=== PATIENT | female | born 1950 | race Caucasian/White ===

== ENCOUNTER 2021-04-21 13:22 | Day surgery (SDC) | payer OTHER ==
[~2021-04-21] VITALS: Ht 160 cm; Wt 75.2 kg
[~2021-04-21 13:22] MED LIST: FAMO20; Flonase 0.05% N16 GM; LORA10ER; PRINIVIL5 M1; ZOCOR20 MG
[2021-04-21] MEDS ORDERED: MASOPHEN325 M1 (13:56)
== END 2021-04-21 15:46 | disposition home or self-care (01) ==
LOC: ORSCSDS 13:22
PROVIDERS: Internal Medicine Gastroenterology
PROC: 0DBL8ZX Excision of Transverse Colon, Via Natural or Artificial Opening Endoscopic, Diagnostic (ICD-10-PCS; principal; 2021-04-21 14:45)
DX: Z12.11 Encounter for screening for malignant neoplasm of colon (principal); K63.5 Polyp of colon; K57.30 Diverticulosis of large intestine without perforation or abscess without bleeding; K64.8 Other hemorrhoids
CPT/HCPCS: 88305; J2704; J7120

== ENCOUNTER → 2022-01-26 | Outpatient (CLI) | payer OTHER ==
[~2022-01-26] MED LIST changes: +MASOPHEN325 M1
== END | disposition home or self-care (01) ==
LOC: LAB 16:49 → LAB SHORT 16:49
DX: R30.0 Dysuria (principal)
CPT/HCPCS: 87086

== ENCOUNTER → 2022-02-25 | Outpatient (CLI) | payer OTHER | END | disposition home or self-care (01) | LOC: LAB SHORT 11:42 → LAB 11:42 | DX: R30.0 Dysuria (principal) | CPT/HCPCS: 87086 ==

== ENCOUNTER → 2022-03-15 | Outpatient (CLI) | payer OTHER | END | disposition home or self-care (01) | LOC: LAB SHORT 07:51 → PLD 07:51 → LAB 07:51 | DX: N95.0 Postmenopausal bleeding (principal); R93.89 Abnormal findings on diagnostic imaging of other specified body structures | CPT/HCPCS: 88305 ==

== ENCOUNTER → 2022-06-11 | Outpatient (CLI) | payer OTHER ==
[2022-06-14 11:42] LABS: Adenovirus F 40/41 Not Detected (NOT DETECT); Astrovirus Not Detected (NOT DETECT); Campylobacter Sp Not Detected (NOT DETECT); Cryptosporidium Not Detected (NOT DETECT); Cyclospora Cayetanensis Not Detected (NOT DETECT); E. Coli O157 Not Detected (NOT DETECT); Entamoeba Histolytica Not Detected (NOT DETECT); Enteroaggregative E. coli-EAEC Not Detected (NOT DETECT); Enteropathogenic E. coli-EPEC Detected (NOT DETECT); Enterotoxigenic E. coli-ETEC Not Detected (NOT DETECT); Giardia Lamblia Not Detected (NOT DETECT); Norovirus GI/GII Not Detected (NOT DETECT); Plesiomonas Shigelloides Not Detected (NOT DETECT); Rotavirus A Not Detected (NOT DETECT); Salmonella Sp Not Detected (NOT DETECT); Sapovirus Not Detected (NOT DETECT); Shiga Toxin-prod E. coli-STEC Not Detected (NOT DETECT); Shigella/Enteroin E. coli-EIEC Not Detected (NOT DETECT); Vibrio Cholerae Not Detected (NOT DETECT); Vibrio Sp Not Detected (NOT DETECT); Yersinia Enterocolitica Not Detected (NOT DETECT)
== END | disposition home or self-care (01) ==
LOC: LAB SHORT 12:15 → LAB 12:15
PROVIDERS: Family Medicine
DX: K52.9 Noninfective gastroenteritis and colitis, unspecified (principal)
CPT/HCPCS: 87507

== ENCOUNTER 2022-09-27 11:33 | Day surgery (SDC) | payer OTHER ==
[~2022-09-27] VITALS: Ht 160 cm; Wt 68.9 kg
--- NOTE | 2022-09-27 14:58 | NUR ---
09/27/22 1453 NI VALLE PT HAS RX FOR PERCOCET AND IBUPROFEN. PT REQUESTS AN RX FOR TRAMADOL INSTEAD OF PERCOCET. DR. KLEIN CHANGED RX TO TRAMADOL AND REQUESTED THAT RX FOR PERCOCET AND IBUPROFEN TO BE DESTROYED. STATES THAT SHE CAN TAKE OTC IBUPROFEN.
== END 2022-09-27 23:59 | disposition home or self-care (01) ==
LOC: ORSCSDS 11:33
PROVIDERS: Obstetrics & Gynecology
PROC: 0UB74ZZ Excision of Bilateral Fallopian Tubes, Percutaneous Endoscopic Approach (ICD-10-PCS; principal; 2022-09-27 13:00)
PROC: 0UDB7ZX Extraction of Endometrium, Via Natural or Artificial Opening, Diagnostic (ICD-10-PCS; principal; 2022-09-27 13:00)
PROC: 0UB24ZZ Excision of Bilateral Ovaries, Percutaneous Endoscopic Approach (ICD-10-PCS; principal; 2022-09-27 13:00)
PROC: 0UJD8ZZ Inspection of Uterus and Cervix, Via Natural or Artificial Opening Endoscopic (ICD-10-PCS; principal; 2022-09-27 13:00)
DX: N83.202 Unspecified ovarian cyst, left side (principal); R10.2 Pelvic and perineal pain; N95.0 Postmenopausal bleeding; I10 Essential (primary) hypertension; E78.5 Hyperlipidemia, unspecified; K21.9 Gastro-esophageal reflux disease without esophagitis; Z79.899 Other long term (current) drug therapy
CPT/HCPCS: 88305; A9270; J0171; J1100; J2250; J2405; J2704; J3010; J7120